=== PATIENT | female | born 1960 ===

== ENCOUNTER 2018-10-20 10:51 | Inpatient (IN) ==
[2018-10-20] MEDS ORDERED: ACETAMINOPHEN 325 MG TAB PO PRN (11:28)
[2018-10-20] MEDS ORDERED: MAGNESIUM HYDROXIDE SUSP 30 ML UDC PO PRN (11:28)
[2018-10-20] MEDS ORDERED: ALUMINUM/MAGNESIUM SUSP 30 ML UDC PO PRN (11:28)
[2018-10-20] MEDS ORDERED: SODIUM CHLORIDE 0.65% NA SOLN 45 ML (OCEAN) PRN (11:28)
[2018-10-20] MEDS ORDERED: BISMUTH SUBSALICYLATE PER ML OMNICELL CHARGE PO PRN (11:28)
[2018-10-20] MEDS ORDERED: PATIENT'S ALLERGY INFO NEEDS ENTERED SCH (11:45)
[2018-10-20] MEDS: NICOTINE 21 MG/24 HR TDSY TD SCH (14:19)
[2018-10-20] MEDS ORDERED: fentaNYL 100 MCG/HR TDSY TD SCH (19:30)
[2018-10-20] MEDS: METOPROLOL SUCC 50MG EXT REL TAB PO SCH (21:34)
[2018-10-21] MEDS: CHECK FENTANYL PATCH PLACEMENT SCH ×2 (07:48→15:51)
[2018-10-21] MEDS: LEVOTHYROXINE SODIUM 200 MCG TABLET PO SCH (07:48)
[2018-10-21] MEDS: NICOTINE 21 MG/24 HR TDSY TD SCH (07:50)
[2018-10-21] MEDS: hydroCHLOROthiazide 25 MG TAB PO SCH (08:36)
[2018-10-21] MEDS: ROSUVASTATIN CALCIUM 20 MG TAB PO SCH (08:36)
[2018-10-21] MEDS: METOPROLOL SUCC 50MG EXT REL TAB PO SCH ×2 (08:37→20:46)
[2018-10-21] MEDS: ESCITALOPRAM OXALATE 20 MG TAB PO SCH (08:37)
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
[2018-10-21] MEDS: LORazepam 0.5 MG TAB PO PRN (16:53)
[2018-10-22] MEDS: CHECK FENTANYL PATCH PLACEMENT SCH ×3 (00:01→15:41)
[2018-10-22] MEDS: LORazepam 0.5 MG TAB PO PRN (00:23)
[2018-10-22 07:57] LABS: T4 Free Thyroxine 1.12 ng/dl (0.8-1.6)
[2018-10-22] MEDS: hydroCHLOROthiazide 25 MG TAB PO SCH (08:40)
[2018-10-22] MEDS: LEVOTHYROXINE SODIUM 200 MCG TABLET PO SCH (08:40)
[2018-10-22] MEDS: ROSUVASTATIN CALCIUM 20 MG TAB PO SCH (08:40)
[2018-10-22] MEDS: ESCITALOPRAM OXALATE 20 MG TAB PO SCH (08:41)
[2018-10-22] MEDS: METOPROLOL SUCC 50MG EXT REL TAB PO SCH ×2 (08:41→20:33)
[2018-10-22] MEDS: NICOTINE 21 MG/24 HR TDSY TD SCH (08:45)
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
[2018-10-23] MEDS: CHECK FENTANYL PATCH PLACEMENT SCH ×3 (01:19→17:02)
[2018-10-23] MEDS: LORazepam 0.5 MG TAB PO PRN ×3 (03:18→20:05)
[2018-10-23] MEDS: ROSUVASTATIN CALCIUM 20 MG TAB PO SCH (08:34)
[2018-10-23] MEDS: hydroCHLOROthiazide 25 MG TAB PO SCH (08:34)
[2018-10-23] MEDS: LEVOTHYROXINE SODIUM 200 MCG TABLET PO SCH (08:34)
[2018-10-23] MEDS: METOPROLOL SUCC 50MG EXT REL TAB PO SCH ×2 (08:35→21:17)
[2018-10-23] MEDS: ESCITALOPRAM OXALATE 20 MG TAB PO SCH (08:35)
[2018-10-23] MEDS: NICOTINE 21 MG/24 HR TDSY TD SCH (08:36)
[2018-10-23] MEDS ORDERED: fentaNYL 100 MCG/HR TDSY TD SCH (09:00)
[2018-10-23] MEDS ORDERED: fentaNYL 75 MCG/HR TDSY TD SCH (11:15)
--- NOTE | 2018-10-23 11:18 | Psychiatric Progress Note ---
Date of Service October 23, 2018 Impression / Recommendations Impression The patient remains focused on continuing with her controlled substances. I have talked with her about concerns for opiates with BZD and about recommendations from her prescriber to taper given recent overdose. I have offered to explore options for pain management, something recommended by her OP providers and she agreed to [facility] in [place]. Will also ask nursing to attempt to obtain an appt with her PCP's office for within the next 3 days, as I will not be providing a fentanyl rx at discharge as this should be obtained from only 1 provider. Her boyfriend Eric apparently has questions about her treatment and so have asked social work to contact him to clarify. At this point given that she is not suicidal and is focused on her medical issues, we anticipate that we can reasonably discharge her tomorrow in advance of her appts. (1) Borderline personality disorder: 10/21- continue Lexapro, observe in unit, and offer milieu and group, safety checks, get collateral history [facility] [place] and [facility] outpatient therapy and behavioral health prescriber that is consistent and who work together with each other and [facility] - held Seroquel for now given HLP, obesity, and on many sedating medications, need to get EKG to understand her QTC and possibly get cardiac records from [facility] to assess risk vs. benefit - inpatient care is least restrictive and most appropriate setting for care until further medical and mental health collateral history is obtained and further clinical observation due to ruling out ongoing mental status change, and observing mood and anxiety report, as well as establishing after care medically and psychiatrically as ways to reduce risk of recurrence - patient has a complex social situation which is a big risk factor but cannot easily be addressed or changed, case management may be helpful in support and constancy given partner is away 2 weeks a month, possibly [facility] or similar home nursing service to assure constancy with medications and checks to see that she is stable at home and not declining. 10/22 - Primary diagnosis likely BPD, as patient denies depressive symptoms p/t overdose or now. - Continue escitalopam at home dose. -Patient requesting to resume quetiapine but does not know her home dose - will coordinate with OP physician. FLP and FG checked and WNLs, other than TG elevated at 176. EKG was sinus bradycardia with a rate of 55 and QTC of 432. -Will need outpatient mental health services. 10/23 - We have collaborated with her op providers, Drs. Rhodes and Carmelo, who have recommended tapering Fentanyl. Will cut to 75 mcg q 3 days - Continue other medications (2) PTSD (post-traumatic stress disorder): 10/21 - see depression as above, - did continue ativan but reduced from 1mg tid to 0.5mg qid prn with consideration for a protracted taper to reduce sedating medication combinations that could lead to disorientation and respiratory suppression and confusion. Ativan is not a primary medication for PTSD, but can be used for panic and ANDREW, so will need to review history and consider further. 10/22 -continue slow lorazepam taper, given the risk of drug drug interactions and dangerousness in overdose, especially with her other prescribed controlled substances. (3) Migraines: will need to read about "[place] migraines" and request records from [facility] in [place] Dr Iniguez/Nory Prakash ROD PILER - cautiously continue fentanyl 100mcg, consider doing a patch count from home supply prior to discharge and making clear plan with prescribing provider on how patient is to handle inpatient admissions with recommendation that she use home patches at all times, with goal to limit risk of seeking admission if there is an element of overuse, and if there is not then this will not be a problem - neurology referral for ongoing care of her post-CVA status and migraines. 10/23 - Refer to pain management - Reduce Fentanyl to 75 mcg q 3 days with follow up appte with Drs. Rhodes within the next 3 days. (4) HTN (hypertension): - continue metoprolol, EKG to assess QTc as well as monitor for "tachy- bob syndrome" (5) Hyperlipidemia: continue statin (6) TONO (obstructive sleep apnea): - refer to sleep medicine for f/u PSG and assessment for need for CPAP (7) Hypothyroid: 10/21 - obtain TSH, continue levothyroxine home dose for now 10/22 - TSH low at 0.018, but free T4 WNLs at 1.12. Continue home dose of levothyroxine and f/u with PCP. Risk Factors Assessment Male: No : Yes Do You Have Access To A Gun?: No (confirmed by Eric "friend"/partner) Health Problems: Yes Mental Health Diagnoses: Yes Substance Use Disorders: No Previous Attempt: Yes Previous Attempt; Highly Lethal: No Family History of Suicide: Yes Previous Psychiatric Hospitalization: Yes Hopelessness: Yes (at time of TI) Smoker: No Protective Factors Assessment : No Responsible for Young Children: No Employed: No Stable Relationships: Yes Supportive Family: No Interval History Identifying Information IRLANDA TORIBIO is a 58-year-old F who currently lives in [place] and her partner (who lives there one week on, one week off). The patient has a history of PTSD, mood concerns, and historical CVAs. She was admitted as a transfer from the [facility] ER s/o TI of blood pressure medication (#12 of 100mg metoprolol) 20hours prior to arrival. She was admitted to [facility] on 10:51 on a 201 voluntary commitment. Chief Complaint "I feel as if I'm being punished. ". Review of Systems Sleep Information Total Hours of Sleep: 6.5 Sleep Comments: pt given vistaril per rn. pt on q-15 minute checks Meal Information Percent Meal Consumed - Breakfast: 80 Percent Meal Consumed - Lunch: 100 Percent Meal Consumed - Dinner: 30 Nutrition Comment: pt. ate yogurt parfait that her fiance brought for her. Subjective Subjective Patient was seen & assessed and interval progress reviewed with Treatment Team. The patient describes her mood today as "not too good". She feels frustrated that her medications are not being given to her as they were prescribed. She takes time to review her medical history including her migraines and strokes and the fact that she has been on fentanyl patches for decades. As was done yesterday, I explain our concerns about detention opiates with BZD including having communicated with her OP prescriber's office (Dr. Rhodes) who are requesting that we begin the taper off of Fentanyl. We review her providers and she is willing for a referral to a pain management clinic near her home for ongoing pain treatment. She says that she feels she is not being heard when talking about her medical conditions and needs for medications and fears she shouldn't leave the hospital until she has all of her meds. She is reporting poor sleep, requesting ambien and flexeril for tonight. She says that she can't take trazodone because of nightmares that in the past have contributed to psychotic episodes. She denies SI/HI, aud/vis hallucinations. [facility] D[facility] Rhodes and Carm[facility]. Apparently, the patient was seen there by the younger Dr. Rhodes who informed her that he was not comfortable prescribing the fentanyl patches moving forward and that he was providing a bridging script to give her time to find a pain management clinic. this was on 07/17/18. Our nurse talked with their clinic nurse amrita to inform them of the overdose and our concerns about controlled substances and were informed that they wanted us to initiate a fentanyl taper. This was reviewed with the patient. Physical Exam Psychiatric Orientation: alert and cooperative Apperance: appropriately dressed and + disheveled (mildly malodorous, unclean hair, missing multiple teeth) Eye Contact: good eye contact Motor Behavior: steady gait and station and no abnormal motor movements Speech: normal rate/rhythm/volume of speech Affect: + anxious affect Mood: + anxious mood Thought Process: + perseveration (on needing controlled substances) Thought Content: reality based without delusions Suicidal Thoughts: denies suicidal thoughts Homicidal Thoughts: denies homicidal thoughts Hallucinations: no auditory hallucinations and no visual hallucinations Cognition: recent memory grossly intact, remote memory grossly intact, attention grossly intact and language grossly intact Estimated Intelligence: average estimated intelligence Insight: + impaired insight Judgement: + impaired judgement Vital Signs (Past 24 Hours) Last Vital Signs Temp 36.6 C 10/23/18 06:58 Pulse 60 10/23/18 08:40 Resp 18 10/23/18 06:58 BP 105/70 10/23/18 06:59 See Physical Exam from [facility] Rodney Corbett MD dated 10/19/18 (records to be scanned) reviewed and considered as sufficient for the purposes of this admission H&P Results & Data Current Inpatient Medications Current Inpatient Medications: Current Inpatient Medications Acetaminophen (Tylenol) 650 mg PO Q4H PRN PRN Reason: Headache or Minor Fever Stop: 11/19/18 11:27 Last Admin: 10/22/18 20:35 Dose: 650 mg Al Hydrox/Mg Hydrox/Simethicone (Maalox) 30 ml PO Q4H PRN PRN Reason: GI Upset Stop: 11/19/18 11:27 Bismuth Subsalicylate (Kaopectate) 15 ml PO PRN PRN PRN Reason: Loose Stool Stop: 11/19/18 11:27 Escitalopram Oxalate (Lexapro) 20 mg PO DAILY [facility] Stop: 11/20/18 08:59 Last Admin: 10/23/18 08:35 Dose: 20 mg Fentanyl (Duragesic) 75 mcg TD Q3D [facility] Stop: 11/06/18 11:04 Hydrochlorothiazide (Hctz) 12.5 mg PO DAILY [facility] Stop: 11/20/18 08:59 Last Admin: 10/23/18 08:34 Dose: 12.5 mg Hydroxyzine HCl (Vistaril) 50 mg PO HSZ PRN PRN Reason: Insomnia Stop: 11/19/18 11:27 Last Admin: 10/22/18 21:15 Dose: 50 mg Levothyroxine Sodium (Synthroid) 200 mcg PO DAILYBB [facility] Stop: 11/20/18 07:59 Last Admin: 10/23/18 08:34 Dose: 200 mcg Lorazepam (Ativan) 0.5 mg PO QID PRN PRN Reason: Anxiety Stop: 11/19/18 19:28 Last Admin: 10/23/18 11:03 Dose: 0.5 mg Magnesium Hydroxide (Milk Of Magnesia) 30 ml PO DAILY PRN PRN Reason: Heartburn Stop: 11/19/18 11:27 Metoprolol Succinate (Toprol Xl) 100 mg PO BID [facility] Stop: 11/19/18 20:59 Last Admin: 10/23/18 08:35 Dose: 100 mg Miscellaneous (Remove Nicoderm Patch) 1 ea N/A DAILY@2100 [facility] Stop: 11/19/18 20:59 Last Admin: 10/22/18 20:36 Dose: Not Given Miscellaneous (Fentanyl Patch Check Placement) 1 ea N/A QS [facility] Stop: 11/20/18 07:59 Last Admin: 10/23/18 08:46 Dose: 1 ea Miscellaneous (Fentanyl Patch Remove & Waste) 1 ea N/A Q72H [facility] Stop: 11/22/18 11:13 Nicotine (Nicoderm Cq) 21 mg TD QAM [facility] Stop: 11/19/18 11:44 Last Admin: 10/23/18 08:36 Dose: Not Given Rosuvastatin Calcium (Crestor) 20 mg PO DAILY [facility] Stop: 11/20/18 08:59 Last Admin: 10/23/18 08:34 Dose: 20 mg Sodium Chloride ([place] Nasal) 1 - 2 sprays NA PRN PRN PRN Reason: Nasal Dryness/Congestion Stop: 11/19/18 11:27 Post Discharge Appointments Primary Care Physician Name Of Family Doctor: Dr. Misael Cantu [facility] Date of Appointment with PCP: 11/01/18 Time of Appointment with PCP: 1:20pm Psychiatrist Name of Psychiatrist: FRED Dsouza Psychiatrist's Psychiatric Appointment Comment: will be scheduled after intake Therapist Name of Therapist: FRED Rust Therapist's Date of Therapist Appointment: 10/24/18 Time of Therapist Appointment: 2pm Therapy Appointment Comment: [id number] [facility] Fitz CORREIA Cafeteria Table Attendant Name of Cafeteria Table Attendant: denies Contact Information Discharge Discharge Address: [address] [place] [address] Fitz CORREIA CPT Code CPT Code 66656
[2018-10-24] MEDS: CHECK FENTANYL PATCH PLACEMENT SCH ×2 (01:03→09:07)
[2018-10-24] MEDS: LORazepam 0.5 MG TAB PO PRN ×2 (03:12→09:09)
[2018-10-24] MEDS: ROSUVASTATIN CALCIUM 20 MG TAB PO SCH (09:08)
[2018-10-24] MEDS: hydroCHLOROthiazide 25 MG TAB PO SCH (09:08)
[2018-10-24] MEDS: LEVOTHYROXINE SODIUM 200 MCG TABLET PO SCH (09:08)
[2018-10-24] MEDS: ESCITALOPRAM OXALATE 20 MG TAB PO SCH (09:08)
[2018-10-24] MEDS: METOPROLOL SUCC 50MG EXT REL TAB PO SCH (09:09)
[2018-10-24] MEDS: NICOTINE 21 MG/24 HR TDSY TD SCH (09:09)
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
== END 2018-10-24 11:53 | disposition home or self-care (01) | DRG 883 ==
LOC: 3S 10:51